=== PATIENT | male | born 1965 | race Caucasian/White ===

== ENCOUNTER 2020-08-13 17:45 | Emergency (ER) | payer OTHER, SELFPAY ==
[2020-08-13 18:08] VITALS: BP 143/84; PULSE 108; RESP 16; TEMP 36.5; O2SAT 98; BMI 35.9
--- NOTE | 2020-08-13 18:18 | ED_ITS ---
HPI - Alcohol General Chief Complaint: ETOH/Substance Use Stated Complaint: etoh Source: patient and family Mode of arrival: ambulatory Limitations: altered mental status History of Present Illness HPI narrative: 54-year-old male presents to the emergency department for evaluation and ETOH intoxication. One of his friends-family members brought him into the emergency department stating that he has been drinking excessively over the past few days, is going through a divorce, and they are concerned for his well being. Patient states that he did drink several pt of alcohol today, does not describe any suicidal or homicidal ideations, and is answering questions appropriately. He is slurring his words but is able to tell me where he is, speaks with a thick [place]ic accent but understands Romanian. MD complaint: alcohol intoxication Last drink: Hours (ago) (Within the hour of arrival) Amount of alcohol consumed: Several pt Chronic alcohol use: Yes Previous visits for alcohol intoxication: Yes Recent trauma: No Associated symptoms: denies other symptoms Treatments prior to arrival: none Related Data Home Medications Medication Instructions Recorded Confirmed folic acid 1 mg tablet 1 mg PO DAILY 05/14/20 06/18/20 melatonin 5 mg tablet 5 mg PO BEDTIME 05/14/20 06/18/20 pyridoxine (vitamin B6) 50 mg 50 mg PO DAILY 05/14/20 06/18/20 tablet Previous Rx's Medication Instructions Recorded metoprolol succinate 100 mg 100 mg PO DAILY #30 tab 05/14/20 tablet,extended release 24 hr sertraline 50 mg tablet 50 mg PO DAILY #30 tab 05/14/20 hydroxyzine HCl 25 mg tablet 25 mg PO BEDTIME #30 tab 06/18/20 Allergies Allergy/AdvReac Type Severity Reaction Status Date / Time No Known Allergies Allergy Verified 07/22/20 09:06 Review of Systems Review of Systems: Constitutional: No Fever, No Chills ENT/Mouth: No sore throat, No Rhinorrhea Eyes: No Eye Pain, No Swelling, No Redness Cardiovascular: No Chest Pain, No SOB Respiratory: No Cough, No Sputum Gastrointestinal: No Nausea, No Vomiting, No Diarrhea, No abdominal Pain Genitourinary: No Dysuria, No Hematuria Musculoskeletal: No joint pain, No Myalgias, No Joint Swelling Skin: No Skin Lesions, No rash Neuro: No Weakness, No Numbness, No Loss of Consciousness, No Dizziness, No Headache Psych: Positive ETOH intoxication, positive depression, positive significant life stressor, No SI/HI/AH/VH Heme/Lymph: No Bruising, No Bleeding,No Lymphadenopathy Endocrine: No Polyuria, No Polydipsia Yes all other systems are reviewed and are negative [facility] Past Medical History Attestation statement: The following information was validated with the patient. Source: old records reviewed Medical History Depression DJD (degenerative joint disease) ETOH abuse HTN (hypertension) Surgical History No pertinent past surgical history Family History Family History Father No problems noted. Mother Stroke Social History Social History Advance Directives: No Advance Directives Information Provided: Yes Physical Exam Vital Signs: Vital Signs: Last Vital Signs Temp 98.6 F 08/13/20 19:44 Pulse 95 08/13/20 19:44 Resp 16 08/13/20 19:44 BP 134/81 08/13/20 19:44 Pulse Ox 99 08/13/20 19:44 Body Mass Index 35.9 Appearance: Alert. Oriented X3. No acute distress. Eyes: Pupils equal, round and reactive to light. ENT: Pharynx normal. Neck: Normal inspection. Neck supple. CVS: Normal heart rate and rhythm. Pulses normal. Respiratory: No respiratory distress. Breath sounds normal. Abdomen: Soft and nontender. Skin: Skin warm and dry. Normal skin color. Normal skin turgor. Extremities: No lower extremity edema. Neuro: No motor deficit. No sensory deficit. Course Course Course Narrative: 54-year-old male with past medical history of EtOH abuse, depression, hypertension, degenerative disc disease presents to the emergency department after he was dropped off by his friend or family member for excessive drinking. Plan of care is for CBC, Chem 7, ETOH level and BHN consult. Patient family member or friend that dropped him off mention that he was interested in detox, silver recovery operator attempted to offer the patient detox however he is too intoxicated and is declining that he needs detox at this time. 10:25 p.m., patient does have a sober ride home. He denies suicidal ideation, homicidal ideation, and does not want any assistance by silver recovery operator at this time. He was approached the 2nd time for this service. Patient verbalized understanding of and agrees to plan of care to discharge home. MDM - Alcohol Differential Diagnosis Differential diagnosis: Likely alcohol dependence and alcohol intoxication Medical Records Attestation: I reviewed the patient's medical records. Lab Data Attestation: I reviewed the patient's lab results. Result diagrams: 08/13/20 19:09 Labs: Lab Results 08/13/20 08/13/20 08/13/20 Range/Units 19:09 19:09 19:22 WBC 8.7 (4.8-10.8) X10*3/uL RBC 4.97 (4.60-5.80) X10*6/uL Hgb 16.7 (14.0-18.0) g/dl Hct 47.4 (42-52) % MCV 95.4 (80-98) fL MCH 33.6 H (27.0-33.0) pg MCHC 35.2 (31.0-36.0) g/dl RDW 13.2 (11.0-16.0) % Plt Count 244 (160-400) X10*3/uL MPV 9.0 L (9.4-12.4) fL Immature Gran % (Auto) 0.5 H (0.0-0.4) % Neut % (Auto) 63.9 (45-73) % Lymph % (Auto) 28.9 (20-40) % [place] % (Auto) 6.2 (2-11) % Eos % (Auto) 0.2 (0-4) % Baso % (Auto) 0.3 (0-2) % Lymph # (Auto) 2.5 (1.2-4.9) X10*3/uL [place] # (Auto) 0.5 (0.1-1.2) X10*3/uL Eos # (Auto) 0.0 (0.0-0.4) X10*3/uL Baso # (Auto) 0.0 (0.0-0.2) X10*3/uL Abs Immat Gran (auto) 0.04 H (0.00-0.03) X10*3/uL Absolute Neuts (auto) 5.6 (2.0-8.3) X10*3/uL Absolute Nucleated RBC 0.000 (0.0-0.012) X10*3/uL Nucleated RBC % (auto) 0.0 (0.0-0.2) /100WBC Urine Opiates Screen Not Detected (Not Detect) Ur Barbiturates Screen Not Detected (Not Detect) Ur Phencyclidine Scrn Not Detected (Not Detect) Ur Amphetamines Screen Not Detected (Not Detect) U Benzodiazepines Scrn Not Detected (Not Detect) Urine Cocaine Screen Not Detected (Not Detect) U Marijuana (THC) Screen Not Detected (Not Detect) Ethyl Alcohol 332 H* mg/dL Discharge Plan Discharge Clinical Impression: Depression Qualifiers: Depression Type: major depressive disorder Major depression recurrence: recurrent Active/Remission status: currently active Major depression episode severity: moderate Qualified Code(s): F33.1 - Major depressive disorder, recurrent, moderate Alcoholic intoxication Qualifiers: Complication of substance-induced condition: uncomplicated Qualified Code(s): F10.920 - Alcohol use, unspecified with intoxication, uncomplicated Patient Disposition: Home, Self-Care Instructions: Depression (ED), Abuse of Alcohol (ED), Alcohol Use Disorder (ED) Additional Instructions: You were evaluated for alcohol intoxication. Please consider detox. Please consider outpatient therapy. Thank you for choosing this emergency department for evaluation. Please follow-up with primary care physician as needed. Return to the emergency department for any new, concerning, or worsening symptoms. Prescriptions: No Action melatonin 5 mg tablet 5 mg PO BEDTIME RF: 0 folic acid 1 mg tablet 1 mg PO DAILY RF: 0 pyridoxine (vitamin B6) 50 mg tablet 50 mg PO DAILY RF: 0 sertraline 50 mg tablet 50 mg PO DAILY Qty: 30 RF: 2 metoprolol succinate 100 mg tablet extended release 24 hr 100 mg PO DAILY Qty: 30 RF: 5 hydroxyzine HCl 25 mg tablet 25 mg PO BEDTIME Qty: 30 RF: 2 Interventions: ED Discharge Assessment Last Done: 08/13/20 22:57 Discharge Date/Time: 08/13/20 22:57
[2020-08-13 19:16] LABS: MANUAL DIFF FLAG NO
[2020-08-13 19:29] LABS: Basophils Percent Auto 0.3 % (0-2); Eosinophils Percent Auto 0.2 % (0-4); Hematocrit 47.4 % (42-52); Hemoglobin 16.7 g/dl (14.0-18.0); Imm Gran Abs Auto 0.04 X10*3/uL (0.00-0.03); Imm Gran Pct Auto 0.5 % (0.0-0.4); Lymphocytes Absolute Auto 2.5 X10*3/uL (1.2-4.9); Lymphocytes Percent Auto 28.9 % (20-40); Mean Corpuscular HGB Conc 35.2 g/dl (31.0-36.0); Mean Corpuscular Hemoglobin 33.6 pg (27.0-33.0); Mean Corpuscular Volume 95.4 fL (80-98); Monocytes Absolute Auto 0.5 X10*3/uL (0.1-1.2); Monocytes Percent Auto 6.2 % (2-11); Neutrophils Absolute Auto 5.6 X10*3/uL (2.0-8.3); Neutrophils Percent Auto 63.9 % (45-73); Platelet Count 244 X10*3/uL (160-400); Red Blood Count 4.97 X10*6/uL (4.60-5.80); Red Cell Distribution Width 13.2 % (11.0-16.0); White Blood Count 8.7 X10*3/uL (4.8-10.8)
[2020-08-13 19:40] LABS: Ethanol 332 mg/dL
[2020-08-13 19:44] VITALS: BP 134/81; PULSE 95; RESP 16; TEMP 37; O2SAT 99
[2020-08-13 20:04] LABS: Amphetamine Screen Urine Not Detected (Not Detect); Barbiturates, Urine Not Detected (Not Detect); Benzodiazepines Screen Urine Not Detected (Not Detect); Cannabinoid Screen Urine Not Detected (Not Detect); Cocaine Screen Urine Not Detected (Not Detect); Opiate Screen Urine Not Detected (Not Detect); Phencyclidine Screen Urine Not Detected (Not Detect)
--- NOTE | 2020-08-13 20:45 | PC.NURSE ---
AMBULATES WITH A STEADY GAIT. BREATHING EVEN, NON-LABORED. KEEPS ASKING FOR A BED IN A ROOM.
--- NOTE | 2020-08-13 21:06 | MHC.RECOVSUP ---
? Reason for consult Detox o Current location: [facility] o Identified substance use concern: Alcohol - Seeking ATS (detox) - Support ? Intervention: o ATS bed search started/completed/in process o MAT started or to be started o Community resources provided o Harm reduction discussion ? Plan: ? Additional information: Patient refused any services
== END 2020-08-13 22:57 | disposition home or self-care (01) ==
PROVIDERS: Nurse Practitioner Family; Emergency Provider Emergency Medicine; PCP Internal Medicine
DX: F33.1 Major depressive disorder, recurrent, moderate (principal); F10.129 Alcohol abuse with intoxication, unspecified; Y90.8 Blood alcohol level of 240 mg/100 ml or more; Z79.899 Other long term (current) drug therapy
CPT/HCPCS: 80307; 80320; 85025; 99284